=== PATIENT | female | born 2005 | race Hispanic/Latino ===

== ENCOUNTER 2023-10-04 18:48 | Emergency (ER) | payer SELFPAY ==
[~2023-10-04] VITALS: Ht 152.4 cm; Wt 62.5 kg
[2023-10-04 18:50] VITALS: BP 135/70; TEMP 99.3; O2SAT 98
== END 2023-10-04 21:55 | disposition left against medical advice (07) ==
LOC: M ED 18:48
DX: Z53.21 Procedure and treatment not carried out due to patient leaving prior to being seen by health care provider (principal)

== ENCOUNTER → 2023-11-22 | Outpatient (CLI) | payer OTHER ==
[~2023-11-22] MED LIST: GASTROGRAFIN SOLUTION 30ML ONE
== END ==
LOC: M PLAIMG 08:36
DX: R10.9 Unspecified abdominal pain (principal); M54.50 Low back pain, unspecified

== ENCOUNTER 2024-04-08 11:48 | Inpatient (IN) | payer OTHER ==
[~2024-04-08] VITALS: Ht 152.4 cm; Wt 63.8 kg
[2024-04-08] MEDS: NICOTINE 14 MG/24 HR TRANSDERMAL TD SCH (09:00)
[2024-04-08] MEDS ORDERED: MELA3TAB49 PO (12:10)
[2024-04-08 12:49] LABS: HEMATOCRIT 41.4 % (36.0-47.0); HEMOGLOBIN 13.8 g/dl (12.0-15.5); MEAN CORPUSCULAR HEMOGLOBIN 29.6 pg (27.0-33.0); MEAN CORPUSCULAR HGB CONC 33.3 g/dl (32.0-36.5); MEAN CORPUSCULAR VOLUME 88.8 fl (80.0-96.0); PLATELET COUNT, AUTOMATED 376 10^3/uL (150-450); RED BLOOD COUNT 4.66 10^6/uL (4.00-5.40); WHITE BLOOD COUNT 13.2 10^3/uL (4.0-10.0)
[2024-04-08 13:15] LABS: ETHYL ALCOHOL (ETHANOL) < 0.003 % (0.000-0.010)
[2024-04-08 13:17] LABS: ALBUMIN 3.5 G/DL (3.2-5.2); ALKALINE PHOSPHATASE 74 U/L (35-104); ALT/SGPT 26 U/L (7.0-40); AST/SGOT 14 U/L (<34); BILIRUBIN,DIRECT < 0.1 MG/DL (<0.4); BILIRUBIN,TOTAL < 0.2 MG/DL (0.3-1.2); BLOOD UREA NITROGEN 14 MG/DL (9-23); CALCIUM LEVEL 9.3 MG/DL (8.5-10.1); CARBON DIOXIDE LEVEL 28 MMOL/L (20-31); CHLORIDE LEVEL 105 MMOL/L (98-107); CREATININE FOR GFR 0.54 MG/DL (0.55-1.30); GLUCOSE, FASTING 95 MG/DL (60-100); POTASSIUM SERUM 4.3 MMOL/L (3.5-5.1); SALICYLATE LEVEL < 3.0 MG/DL (<30); SODIUM LEVEL 141 MMOL/L (136-145); TOTAL PROTEIN 6.8 G/DL (5.7-8.2)
[2024-04-08 13:19] LABS: THYROID STIMULATING HORMONE 3.246 uIU/ML (0.48-4.17)
[2024-04-08 13:24] LABS: HCG, SERUM QUALITATIVE NEGATIVE (NEGATIVE)
[2024-04-08 13:26] LABS: AMPHETAMINES LEVEL URINE NEGATIVE (NEGATIVE); BARBITURATES URINE NEGATIVE (NEGATIVE); BENZODIAZEPINES URINE NEGATIVE (NEGATIVE); CANNABINOIDS URINE NEGATIVE (NEGATIVE); COCAINE METABOLITE URINE NEGATIVE (NEGATIVE); METHADONE URINE NEGATIVE (NEGATIVE); OPIATES URINE NEGATIVE (NEGATIVE); PHENCYCLIDINE URINE NEGATIVE (NEGATIVE)
[2024-04-08] MEDS: IBUPROFEN 400MG TAB PO ONE (14:09)
[2024-04-08] MEDS ORDERED: MELA3TAB30 PO (15:02)
[2024-04-08] MEDS ORDERED: OLAN2.5T53 PO (15:02)
[2024-04-08] MEDS ORDERED: HOME MED LIST COMPLETE! XX SCH (15:05)
[2024-04-08] MEDS ORDERED: MAALOX 30 ML SUSP *UDC PO PRN (18:05)
[2024-04-08] MEDS ORDERED: diphenhydrAMINE 25MG CAP PO PRN (18:05)
[2024-04-08] MEDS ORDERED: IBUPROFEN 400MG TAB PO PRN (18:05)
[2024-04-08] MEDS ORDERED: LORazepam 1 MG TAB PO PRN (18:05)
[2024-04-08] MEDS ORDERED: OLANZapine ORAL DISINTEGRATING TAB 5MG PO PRN (18:05)
[2024-04-08] MEDS ORDERED: MOM 30ML SUSPENSION UDC PO PRN (18:05)
[2024-04-08 18:52] VITALS: BP 124/63; TEMP 98; O2SAT 100
[2024-04-09 06:40] VITALS: BP 150/71; TEMP 98.9; O2SAT 100
[2024-04-09] MEDS: ACETAMINOPHEN 325 MG TAB PO PRN (11:27)
[2024-04-09 15:14] VITALS: BP 117/67; TEMP 98.8; O2SAT 100
[2024-04-09] MEDS: PRAZOSIN 1 MG CAP PO SCH (21:36)
[2024-04-09] MEDS: SIMETHICONE 80MG CHEW TAB PO SCH (21:37)
[2024-04-09] MEDS: OMEPRAZOLE 20MG CAP PO SCH (21:37)
[2024-04-09] MEDS: OLANZapine 2.5MG TABLET PO SCH (21:37)
[2024-04-10 07:12] VITALS: BP 108/67; TEMP 98.2; O2SAT 98
[2024-04-10 17:35] VITALS: BP 122/70; TEMP 98.5; O2SAT 100
[2024-04-10] MEDS: traZODone 50 MG TAB PO PRN (19:59)
[2024-04-10] MEDS: OLANZapine 5 MG TAB PO SCH (20:20)
[2024-04-11 06:48] VITALS: BP 135/70; TEMP 97.1; O2SAT 100
[2024-04-11 15:43] VITALS: BP 124/69; TEMP 98.5; O2SAT 100
[2024-04-12 06:37] VITALS: BP 130/64; TEMP 97.5; O2SAT 100
[2024-04-12 15:26] VITALS: BP 140/79; TEMP 98.6; O2SAT 100
[2024-04-13 06:29] VITALS: BP 119/64; TEMP 97; O2SAT 100
[2024-04-13] MEDS: SIMETHICONE 80MG CHEW TAB PO PRN (08:27)
[2024-04-13 14:47] VITALS: BP 119/60; TEMP 97.8; O2SAT 100
[2024-04-13] MEDS: LURASIDONE 20 MG TAB (LATUDA) PO SCH (18:04)
[2024-04-14 06:30] VITALS: BP 119/62; TEMP 98.4; O2SAT 98
[2024-04-14 16:29] VITALS: BP 114/67; TEMP 98.4; O2SAT 98
[2024-04-15 06:08] VITALS: BP 103/57; TEMP 97.6; O2SAT 99
[2024-04-15 15:13] VITALS: BP 108/58; TEMP 97.4; O2SAT 100
[2024-04-16 06:56] VITALS: BP 129/67; TEMP 97.6; O2SAT 99
[2024-04-16 14:44] VITALS: BP 100/56; TEMP 98; O2SAT 100
[2024-04-17 06:58] VITALS: BP 133/73; TEMP 98.1; O2SAT 100
[2024-04-17 16:51] VITALS: BP 112/58; TEMP 97.6; O2SAT 98
[2024-04-17 20:20] VITALS: BP 117/62
[2024-04-18 06:42] VITALS: BP 117/56; TEMP 97.7; O2SAT 97
[2024-04-18] MEDS ORDERED: PRAZ1CAP PO (09:07)
[2024-04-18] MEDS ORDERED: LATU20TA PO (09:07)
[2024-04-18] MEDS ORDERED: TRAZ-252 PO (09:07)
[2024-04-18] MEDS ORDERED: OMEP-173 PO (09:07)
== END 2024-04-18 10:15 | disposition home or self-care (01) | DRG 885 ==
LOC: M ED 11:48 → M ED INP 18:03 → M PSY 18:38
PROVIDERS: ADMIT Psychiatry & Neurology Neurology; ATTEND Psychiatry & Neurology Psychiatry
DX: F31.9 Bipolar disorder, unspecified (principal); Z79.899 Other long term (current) drug therapy

== ENCOUNTER → 2024-07-03 | Outpatient (REF) ==
[~2024-07-03] MED LIST changes: -GASTROGRAFIN SOLUTION 30ML ONE; +LATU20TA PO; +MELA3TAB30 PO; +MELA3TAB49 PO; +OLAN2.5T53 PO; +OMEP-173 PO; +PRAZ1CAP PO; +TRAZ-252 PO
== END ==
LOC: M PLAIMG 13:03
PROVIDERS: ATTEND Internal Medicine
DX: Z00.00 Encounter for general adult medical examination without abnormal findings (principal)